=== PATIENT | male | born 2000 | race Caucasian/White ===

== ENCOUNTER 2024-11-07 12:48 | Emergency (ER) | payer OTHER, SELFPAY ==
[2024-11-07 12:52] VITALS: BP 139/90; PULSE 111; RESP 12; TEMP 36.6; O2SAT 98
--- NOTE | 2024-11-07 13:09 | ED.GENADUL_ITS ---
Discharge Plan Disposition Patient Disposition: Home Condition: Good Discharge Details Clinical Impression: Food impaction of esophagus Primary Care Provider: [place], [place] ED Provider: Rudi Benjamin Home Meds and New Rx's Prescriptions: No Action No Known Home Meds Discharge Instructions Instructions: Foreign Body, Swallowed, Adult Additional Instructions: At this time the food impaction has seemingly passed. Please stick with a soft food and liquid diet for the next 48 hours. If you notice any worsening of your symptoms, or any new symptoms such as vomiting, diarrhea, fever, chills, shortness of breath, chest pain, numbness, weakness, or fainting , please return immediately to the emergency department for reevaluation. Please follow up with your primary care provider as soon as possible for reassessment and reevaluation. As always, it was a pleasure participating in your medical care today. HPI General Date/Time Provider Initiated Documentation: 11/07/24 12:50 . HPI Narrative: 24-year-old male with no significant past medical history who presents today for evaluation of potential esophageal food bolus. Patient states that he was eating pork noodles last night, he took a large bite of pork, and then felt that it got stuck in his throat. He had no coughing or breathing challenges, he did try drinking some fluid and taking some Tums and taking some carbonated soda. He was able to keep it down for a few minutes, but felt quite unwell and made himself throw up shortly thereafter. He went to bed, and when he woke up he had a continued sensation of a food bolus stuck in his throat right at the level of the superior aspect of the manubrium. He did try to take sips of water, but everything would come back up about 45 seconds later. He has not been able to eat any solid food since then. He denies fever or chills. He denies blood in his vomit. No diarrhea. He has never had a complication like this before. No other complaints at this time. No chest pain or shortness of breath. Related Data Home Medications ?Medication ?Instructions ?Recorded ?Confirmed Unknown [No Known Home Meds] 11/07/24 11/07/24 Allergies Allergy/AdvReac Type Severity Reaction Status Date / Time No Known Allergies Allergy Unverified 11/07/24 12:54 General Stated Complaint: ForeignBody PETAR: 3 Exam Narrative Exam Narrative: 1.Const: Well-nourished, Well-developed, appearing stated age 2.Eyes: PERRL, no conjunctival injection, and symmetrical lids. 3.ENT: Atraumatic external nose and ears. Moist MM. Neck: Symmetric, trachea midline, No thyromegaly. 4.CVS: +S1/S2, Peripheral pulses 2+ and equal in all extremities. Brisk capillary refill in all extremities. 5.RESP: Unlabored respiratory effort. Clear to auscultation bilaterally. No wheezes rales or rhonchi 6.GI: Soft, Nontender/Nondistended, No hepatosplenomegaly. No guarding or rebound. 7.MSK: Normocephalic/Atraumatic, Extremities w/o deformity or ttp No cyanosis or clubbing, Normal movement of all extremities 8.Skin: Warm, Dry. No rashes or lesions. 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 Sensation grossly intact, no focal neurologic deficits. 10.Psych: (AAO) x3. Appropriate mood and affect Course Vital Signs Vital signs: Vital Signs Temperature 36.6 C 11/07/24 12:52 Pulse 111 H 11/07/24 12:52 Respiratory Rate 12 11/07/24 12:52 Blood Pressure 139/90 11/07/24 12:52 Pulse Oximetry 98 11/07/24 12:52 Temperature 36.6 C 11/07/24 12:52 Temperature Source Oral 11/07/24 12:52 Pulse 111 H 11/07/24 12:52 Respiratory Rate 12 11/07/24 12:52 Blood Pressure 139/90 11/07/24 12:52 Blood Pressure Position Sitting 11/07/24 12:52 Pulse Oximetry 98 11/07/24 12:52 Oxygen Delivery Method Room Air 11/07/24 12:52 Oxygen Flow Rate 0 11/07/24 12:52 Pain Level 0 11/07/24 12:52 Medical Decision Making 24-year-old male with no significant past medical history who presents today for evaluation of potential esophageal food bolus. Patient states that he was eating pork noodles last night, he took a large bite of pork, and then felt that it got stuck in his throat. He had no coughing or breathing challenges, he did try drinking some fluid and taking some Tums and taking some carbonated soda. He was able to keep it down for a few minutes, but felt quite unwell and made himself throw up shortly thereafter. He went to bed, and when he woke up he had a continued sensation of a food bolus stuck in his throat right at the level of the superior aspect of the manubrium. He did try to take sips of water, but everything would come back up about 45 seconds later. He has not been able to eat any solid food since then. He denies fever or chills. He denies blood in his vomit. No diarrhea. He has never had a complication like this before. No other complaints at this time. No chest pain or shortness of breath. Physical exam demonstrates a well-appearing male. He is able to control his secretions well. He has no chest pain, subcutaneous crepitus, stridor, abnormal lung sounds, or other abnormalities. Posterior oropharynx is unremarkable. Patient otherwise clinically looks well. He is clear that he is unable to keep anything down otherwise. No abdominal tenderness to suggest pancreatitis, or obstruction of the abdomen. Concern for potential mild esophageal impaction. W ill give effervescent granules and glucagon for treatment as symptomatology certainly has been over 12 hours at this point. No indication for emergent imaging at this time. Will monitor closely and reassess. 3:20 PM After 2 rounds of effervescent granules and glue a single 1 mg dose of glucagon, the patient was able to pass a fluid bolus, and tolerate p.o. Patient then underwent p.o. trial, and was able to eat crackers and drink a whole cup of water without any difficulty or challenge. He feels much better, the globus sensation has resolved. Patient feels well and would like to go home. Will recommend soft diet for the next 48 hours. Discussed red flags for which to return. Patient shows no signs of impaction, or other concerning etiology at this time. No evidence of Vonnie-Townsend tear or Boerhaave's tear clinically. No subcutaneous crepitus. I have extensively reviewed the treatment plan and discharge instructions with the patient. I have addressed all patient concerns at this time. The patient was made aware of what symptoms to monitor for that would warrant a return to the emergency department. Discussed the plan with the patient, they demonstrate verbal understanding and agreement with our assessment and plan at this time. The documentation in this chart was dictated using [employer] dictation software. Please excuse any dictation errors. Quality:SDOH Health Related Social Needs: No Data to Display PFSH All Active Problems (Updated 11/07/24 @ 14:41 by Rudi Benjamin DO) Food impaction of esophagus (Acute) Social History Smoking/Tobacco Use Status: Never Smoking risk assessment performed?: Yes Alcohol Intake: never Drug use: Never Substance use type: does not use Housing: apartment Do you feel safe at home: Yes Do you feel safe in your relationship?: Yes
[2024-11-07] MEDS: Potassium Bicarbonate/Cit AC 25 MEQ TABLET.EFF PO ×2 (13:26→14:11)
[2024-11-07] MEDS: Glucagon 1 MG VIAL IVP (13:26)
[2024-11-07 14:51] VITALS: BP 127/83; PULSE 90; RESP 16; O2SAT 100
== END 2024-11-07 14:50 | disposition home or self-care (01) ==
PROVIDERS: Emergency Provider Student in an Organized Health Care Education/Training Program
DX: K22.2 Esophageal obstruction (principal)
CPT/HCPCS: 96374; 99284; J1100; J1610; J2003; J2405; J2704